=== PATIENT | female | born 1985 | race Caucasian/White ===

== ENCOUNTER 2020-01-05 12:01 | Emergency (ER) | payer OTHER ==
[~2020-01-05] VITALS: Ht 144.8 cm; Wt 83.9 kg
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
[2020-01-05 12:27] LABS: HEMATOCRIT 44.7 % (37.0-47.0); HEMOGLOBIN 14.7 gm/dL (12.0-15.0); MCH 26.3 pg (26.0-34.0); MCV 79.8 fL (80.0-100.0); RBC 5.6 mil/uL (4.20-5.00); RDW 13.4 % (10.5-14.5)
[2020-01-05 12:36] LABS: CALCIUM 9.2 mg/dL (8.5-10.1); CREATININE 0.8 mg/dL (0.6-1.0); POTASSIUM 3.2 mmol/L (3.5-5.1)
[2020-01-05] MEDS ORDERED: MEDROLDOSEPACK PO (13:50)
[2020-01-05] MEDS ORDERED: NORCO 5-325 TA1 EAC2 PO (13:51)
[2020-01-05 14:12] VITALS: BP 141/80
== END 2020-01-05 14:14 | disposition home or self-care (01) ==
LOC: ER 12:01
PROVIDERS: Physician Assistant
DX: S20.212A Contusion of left front wall of thorax, initial encounter (principal); Q05.7 Lumbar spina bifida without hydrocephalus; M54.5 Low back pain; V49.9XXA Car occupant (driver) (passenger) injured in unspecified traffic accident, initial encounter; Y93.89 Activity, other specified; Y92.89 Other specified places as the place of occurrence of the external cause; Y99.8 Other external cause status